=== PATIENT | female | born 1940 | race Caucasian/White ===

== ENCOUNTER 2023-04-30 09:27 | Outpatient (CLI) | payer MEDICARE, BC, SELFPAY | END 2023-04-30 09:28 | disposition home or self-care (01) | PROVIDERS: Visit Provider Nurse Practitioner Family | DX: R30.0 Dysuria (principal); N30.90 Cystitis, unspecified without hematuria | CPT/HCPCS: 87086 ==

== ENCOUNTER 2023-05-03 14:24 | Outpatient (CLI) | payer MEDICARE, BC, SELFPAY | END 2023-05-03 14:25 | disposition home or self-care (01) | LOC: NFLDREF 05-04 15:39 | PROVIDERS: Visit Provider Nurse Practitioner Family | DX: R35.0 Frequency of micturition (principal); R03.0 Elevated blood-pressure reading, without diagnosis of hypertension | CPT/HCPCS: 87086 ==